=== PATIENT | female | born 1965 | race Caucasian/White ===

== ENCOUNTER 2016-09-13 17:53 | Emergency (ER) | payer MEDICAID ==
[~2016-09-13] VITALS: Ht 167.6 cm; Wt 90.5 kg
[2016-09-13 17:56] VITALS: Ht 167.6 cm; Wt 90.5 kg
[2016-09-13] MEDS ORDERED: SOD CHLORIDE 0.9% 1,000 ML IV STA (18:22)
[2016-09-13] MEDS ORDERED: ASPIRIN 81 MG TAB PO ONE (18:30)
[2016-09-13 18:46] LABS: ADD SCAN DIFF NO
[2016-09-13 18:49] LABS: BASOPHILS % 0.3 % (0.0-2.0); EOSINOPHILS # 0.1 10^3/ul (0.0-0.5); EOSINOPHILS % 1.3 % (0.0-7.0); HEMATOCRIT 46.2 % (37.0-47.0); HEMOGLOBIN 15.5 g/dl (12.0-16.0); LYMPHOCYTES # 1.2 10^3/ul (0.8-2.9); LYMPHOCYTES % 11.7 % (15.0-51.0); MEAN CORPUSCULAR HEMOGLOBIN 29.8 pg (29.0-33.0); MEAN CORPUSCULAR HGB CONC 33.5 g/dl (32.0-37.0); MEAN CORPUSCULAR VOLUME 88.7 fl (82.0-101.0); MEAN PLATELET VOLUME 9.5 fl (7.4-10.4); MONOCYTE # 0.6 10^3/ul (0.3-0.9); MONOCYTES % 5.3 % (0.0-11.0); NEUTROPHIL # 8.5 10^3/ul (1.6-7.5); PLATELET COUNT 289 10^3/UL (140-415); RED BLOOD COUNT 5.21 10^6/ul (4.20-5.40); WHITE BLOOD COUNT 10.5 10^3/ul (4.8-10.8)
--- NOTE | 2016-09-13 18:49 | RADRPT ---
PROCEDURE: XR Chest. CLINICAL INDICATION: chest pain TECHNIQUE: Single AP view of the chest were obtained COMPARISON: None FINDINGS: The heart and mediastinum are within normal limits. The pulmonary vasculature are unremarkable. The aorta is unremarkable. There is no lung consolidation, pleural effusion or pneumothorax. There i s no acute osseous abnormality. IMPRESSION: No acute disease. RPTAT: AA .Ashwin Starkey MD, Date Time Electronically viewed and signed by .Ashwin Starkey MD, MD on 09/13/2016 18:49 .J/
[2016-09-13 18:50] LABS: ADD UMIC YES; URINE BILIRUBIN (Dip) NEGATIVE (NEGATIVE); URINE BLOOD (Dip) 2+ (NEGATIVE); URINE COLOR YELLOW (YELLOW); URINE GLUCOSE (Dip) NEGATIVE (NEGATIVE); URINE KETONES (Dip) TRACE (NEGATIVE); URINE LEUKOCYTE ESTERASE (Dip) NEGATIVE (NEGATIVE); URINE NITRITE (Dip) NEGATIVE (NEGATIVE); URINE TOTAL PROTEIN (Dip) NEGATIVE (NEGATIVE); URINE UROBILINOGEN (Dip) 0.2 E.U./dL (0.1-1.0)
[2016-09-13 18:57] LABS: BACTERIA,URINE MODERATE
[2016-09-13] MEDS ORDERED: DICLOFENAC SODIUM 37.5 MG/ML VIAL IV STA (18:58)
[2016-09-13] MEDS ORDERED: SOD CHLORIDE 0.9% 1,000 ML IV ONE (19:00)
[2016-09-13 19:03] LABS: ALBUMIN 4.6 g/dl (3.3-4.9); CHLORIDE 107 mmol/L (97-110); SODIUM 141 mmol/L (135-144)
[2016-09-13 19:05] LABS: CREATININE 0.63 mg/dl (0.44-1.00)
[2016-09-13 19:06] LABS: ALANINE AMINOTRANSFERASE 50 IU/L (13-69); ALBUMIN/GLOBULIN RATIO 1.35; ALKALINE PHOSPHATASE 85 IU/L (42-121); ANION GAP 12 (8-16); ASPARTATE AMINO TRANSFERASE 28 IU/L (15-46); BILIRUBIN,INDIRECT 0.3 mg/dl (0-1.1); BILIRUBIN,TOTAL 0.3 mg/dl (0.2-1.3); BLOOD UREA NITROGEN 14 mg/dl (7-20); CARBON DIOXIDE 26 mmol/L (21-31); GLUCOSE 131 mg/dl (70-220)
[2016-09-13 19:07] LABS: CALCIUM 9.3 mg/dl (8.4-10.2)
[2016-09-13 19:18] LABS: TROPONIN-I < 0.012 ng/ml (0.00-0.12)
[2016-09-13] MEDS ORDERED: LIDOCAINE/MYLANTA 40 ML BTL PO ONE (20:30)
[2016-09-13 20:38] VITALS: BP 130/73; PULSE 91; RESP 20; TEMP 98.1
[2016-09-13] MEDS ORDERED: NAPR-688 PO (20:41)
[2016-09-13] MEDS ORDERED: CIPR500T4 PO (20:41)
[2016-09-13] MEDS ORDERED: RANI150T9 PO (20:41)
--- NOTE | 2016-09-13 20:52 | ERD ---
ER Documentation Chief Complaint Date/Time DATE: 09/13/16 TIME: 20:47 Chief Complaint Complains of fever x 2 days HPI 50-year-old female comes emergency room for 2 days of fever with generalized body aches. She also states that she has had some substernal chest pain described as a burning sensation. She denies any urinary symptoms, nuchal rigidity, cough. She also has some generalized malaise. Denies any shortness of breath. He does not have any medical problems currently. No diabetes, no hypertension, no hypercholesterolemia ROS All systems reviewed and are negative except as per history of present illness. Medications Home Meds Active Scripts Ciprofloxacin Hcl* (Ciprofloxacin Hcl*) 500 Mg Tablet, 500 MG PO BID for 3 Days , TAB Prov:SHEILA SALAMANCASHUA 09/13/16 Naproxen* (Naproxen*) 500 Mg Tablet, 500 MG PO BID Y for PAIN, #20 TAB Prov:JADYNARNULFOFERCHO MOHAN 09/13/16 Ranitidine Hcl* (Zantac*) 150 Mg Tablet, 150 MG PO BID Y for EPIGASTRIC PAIN, # 30 TAB Prov:JADYNSHEILAARNULFO 09/13/16 Reported Medications [None] No Conflict Check 10/25/12 Allergies Allergies: Coded Allergies: No Known Allergy (Unverified , 10/25/12) PMhx/Soc History of Surgery: Yes (TUBAL LIGATION; LUMPECTOMY) Hx Alcohol Use: No Hx Substance Use: No Hx Tobacco Use: No Physical Exam Vitals Vital Signs Date Time Temp Pulse Resp B/P Pulse Ox O2 Delivery O2 Flow Rate FiO2 09/13/16 20:38 98.1 91 20 130/73 100 Room Air 09/13/16 17:56 101.1 123 20 128/74 98 Physical Exam Const: [] No distress Head: Atraumatic Eyes: Normal Conjunctiva, EOMI, PRL ENT: Normal External Ears, Nose and Mouth. Neck: Full range of motion..~ No meningismus. Resp: Clear to auscultation bilaterally Cardio: Regular tachycardia, no murmurs Abd: Soft, non tender, non distended. Normal bowel sounds Skin: No petechiae or rashes Back: No midline or flank tenderness Ext: No cyanosis, or edema Neur: Awake and alert and oriented 3, no focal deficits Psych: Normal Mood and Affect Result Diagram: 09/13/16 1840 09/13/16 1840 Results 24 hrs Laboratory Tests Test 09/13/16 18:30 09/13/16 18:40 Urine Color YELLOW Urine Clarity CLEAR Urine pH 5.5 Urine Specific [place] 1.025 Urine Ketones TRACE Urine Nitrite NEGATIVE Urine Bilirubin NEGATIVE Urine Urobilinogen 0.2 E.U./dL Urine Leukocyte Esterase NEGATIVE Urine Microscopic RBC 2-5/HPF Urine Microscopic WBC 0-2/HPF Urine Epithelial Cells FEW Urine Bacteria MODERATE Urine Hemoglobin 2+ Urine Glucose NEGATIVE% Urine Total Protein NEGATIVE White Blood Count 10.510^3/ul Red Blood Count 5.2110^6/ul Hemoglobin 15.5g/dl Hematocrit 46.2% Mean Corpuscular Volume 88.7fl Mean Corpuscular Hemoglobin 29.8pg Mean Corpuscular Hemoglobin Concent 33.5g/dl Red Cell Distribution Width 13.0% Platelet Count 99075^3/UL Mean Platelet Volume 9.5fl Neutrophils % 81.0% Lymphocytes % 11.7% Monocytes % 5.3% Eosinophils % 1.3% Basophils % 0.3% Nucleated Red Blood Cells % 0.0/100WBC Neutrophils # 8.510^3/ul Lymphocytes # 1.210^3/ul Monocytes # 0.610^3/ul Eosinophils # 0.110^3/ul Basophils # 0.010^3/ul Nucleated Red Blood Cells # 0.010^3/ul Sodium Level 141mmol/L Potassium Level 4.0mmol/L Chloride Level 107mmol/L Carbon Dioxide Level 26mmol/L Anion Gap 12 Blood Urea Nitrogen 14mg/dl Creatinine 0.63mg/dl Glucose Level 131mg/dl Calcium Level 9.3mg/dl Total Bilirubin 0.3mg/dl Direct Bilirubin 0.00mg/dl Indirect Bilirubin 0.3mg/dl Aspartate Amino Transf (AST/SGOT) 28IU/L Alanine Aminotransferase (ALT/SGPT) 50IU/L Alkaline Phosphatase 85IU/L Troponin I < 0.012ng/ml Total Protein 8.0g/dl Albumin 4.6g/dl Globulin 3.40g/dl Albumin/Globulin Ratio 1.35 Current Medications Medications (Trade) Dose Ordered Sig/Inga Route PRN Reason Start Time Stop Time Status Last Admin Dose Admin Sodium Chloride (NS) 1,000 ml @ 1,000 mls/hr Q1H STAT IV 09/13/16 18:22 09/13/16 19:21 DC 09/13/16 18:43 Aspirin (Aspirin) 324 mg ONCE ONCE PO 09/13/16 18:30 09/13/16 18:31 DC 09/13/16 18:34 Diclofenac Sodium 37.5 mg 37.5 mg ONCE STAT IV 09/13/16 18:58 09/13/16 19:00 DC 09/13/16 19:03 Sodium Chloride (NS) 1,000 ml @ 1,000 mls/hr Q1H ONCE IV 09/13/16 19:00 09/13/16 19:59 DC 09/13/16 19:04 Miscellaneous Medication (Gi Cocktail (2)) 40 ml ONCE ONCE PO 09/13/16 20:30 09/13/16 20:31 DC 09/13/16 20:23 Procedures/MDM Symptoms consistent with a viral syndrome. Patient may also have acid reflux. Atypical chest pain described as a burning sensation. She was given a GI cocktail emergency room after which her chest pain resolved completely. IV diclofenac take with a agents body aches completely. She is also given 2 L of fluid. Fever resolved, tachycardia resolved, patient felt asymptomatic in the emergency room. I have very low suspicion for meningitis or serious overwhelming bacterial infection. Urinalysis was essentially negative but did have many bacteria and only a few squamous epithelial cells. We will discharge him with 3 days of ciprofloxacin for possible urinary tract infection as I would prefer this to a going untreated. I am also discharging with naproxen and Zantac. I have given her written instructions to obtain an echocardiogram from her primary care doctor. I also printed all of her laboratories for that visit. Return precautions to the ER given. EKG interpretation: Sinus tachycardia rate of 110, right axis deviation, no ST or T-wave changes concerning for acute ischemia. machine tender interpretation: Initial sinus tachycardia followed by normal sinus rhythm. No other arrhythmias Chest x-ray interpretation: See no acute process, no wide mediastinum, no infiltrate, no pneumothorax, no fractures Departure Diagnosis: Primary Impression: Chest pain Additional Impression: Viral syndrome Condition: Stable Patient Instructions: Understanding Urinary Tract Infections (UTIs), Chest Pain , Uncertain Cause, Viral Syndrome (Adult) Referrals: COMMUNITY CLINICS YOU HAVE RECEIVED A MEDICAL SCREENING EXAM AND THE RESULTS INDICATE THAT YOU DO NOT HAVE A CONDITION THAT REQUIRES URGENT TREATMENT IN THE EMERGENCY DEPARTMENT. FURTHER EVALUATION AND TREATMENT OF YOUR CONDITION CAN WAIT UNTIL YOU ARE SEEN IN YOUR DOCTORS OFFICE WITHIN THE NEXT 1-2 DAYS. IT IS YOUR RESPONSIBILITY TO MAKE AN APPOINTMENT FOR FOLOW-UP CARE. IF YOU HAVE A PRIMARY DOCTOR --you should call your primary doctor and schedule an appointment IF YOU DO NOT HAVE A PRIMARY DOCTOR YOU CAN CALL OUR PHYSICIAN REFERRAL HOTLINE AT IF YOU CAN NOT AFFORD TO SEE A PHYSICIAN YOU CAN CHOSE FROM THE FOLLOWING [facility] [address] [facility] [address] [facility] [facility] [address] [facility] [address] [facility] [address] [facility]. [facility]. [address] Additional Instructions: Llame al doctor MAANA y pastor melania DORETHA PARA DENTRO DE 2-3 NI. Consigue un referral para un echocardiogram para segurar que el avis funciona normal. D gale a la secretaria que nosotros le instruimos hacer esta doretha.Avise o llame si oneal condicin se empeora antes de la doretha. Regresa aqui si peor o no mejor. ARNULFO SALAMANCA DO September 13, 2016 20:52
== END 2016-09-13 20:49 | disposition home or self-care (01) ==
LOC: FTE 17:53
DX: R07.9 Chest pain, unspecified (principal); B34.9 Viral infection, unspecified
CPT/HCPCS: 36415; 71010; 80053; 81001; 84484; 85025; 93005; 96361; 96374; J7030; Z7502; Z7610

== ENCOUNTER 2016-09-15 11:36 | Emergency (ER) | payer MEDICAID ==
[~2016-09-15] VITALS: Ht 160 cm; Wt 88.0 kg
[~2016-09-15 11:36] MED LIST: CIPR500T4 PO; NAPR-688 PO; RANI150T9 PO
[2016-09-15 11:37] VITALS: Ht 160 cm; Wt 88.0 kg
[2016-09-15 12:57] LABS: ADD SCAN DIFF NO
[2016-09-15 13:01] LABS: BASOPHILS % 0.3 % (0.0-2.0); EOSINOPHILS # 0.3 10^3/ul (0.0-0.5); HEMATOCRIT 49.2 % (37.0-47.0); HEMOGLOBIN 15.9 g/dl (12.0-16.0); LYMPHOCYTES # 1.7 10^3/ul (0.8-2.9); LYMPHOCYTES % 25.1 % (15.0-51.0); MEAN CORPUSCULAR HEMOGLOBIN 28.8 pg (29.0-33.0); MEAN CORPUSCULAR HGB CONC 32.3 g/dl (32.0-37.0); MEAN PLATELET VOLUME 9.5 fl (7.4-10.4); MONOCYTE # 0.4 10^3/ul (0.3-0.9); MONOCYTES % 6.5 % (0.0-11.0); NEUTROPHIL # 4.2 10^3/ul (1.6-7.5); NEUTROPHILS % 63.8 % (39.0-77.0); PLATELET COUNT 245 10^3/UL (140-415); RED BLOOD COUNT 5.53 10^6/ul (4.20-5.40); RED CELL DISTRIBUTION WIDTH 13.4 % (11.5-14.5); WHITE BLOOD COUNT 6.6 10^3/ul (4.8-10.8)
[2016-09-15 13:18] LABS: ALBUMIN 4.8 g/dl (3.3-4.9)
[2016-09-15 13:21] LABS: BILIRUBIN,INDIRECT 0.1 mg/dl (0-1.1); BILIRUBIN,TOTAL 0.1 mg/dl (0.2-1.3); CREATININE 0.74 mg/dl (0.44-1.00)
[2016-09-15 13:22] LABS: ALBUMIN/GLOBULIN RATIO 1.6; TOTAL PROTEIN 7.8 g/dl (6.1-8.1)
--- NOTE | 2016-09-15 14:16 | ERD ---
ER Documentation Chief Complaint Date/Time DATE: 09/15/16 TIME: 14:15 Chief Complaint c/o bodyache and diarrhea x 2 days HPI 51 yo female comes emergency department with generalized body aches, she also reports diarrhea for the past 2 days. Patient was seen here about 2 days ago for chest pain, and fever and had a full workup and was sent home with a presumed diagnosis of urinary tract infection. This patient has been taking Cipro, and reports that she has had profuse watery diarrhea for the last few days, the last 2 episodes were bloody. She has not had any fevers or chills continuing, denies abdominal pain, or nausea vomiting. ROS All systems reviewed and are negative except as per history of present illness. Medications Home Meds Active Scripts Loperamide Hcl* (Imodium*) 2 Mg Capsule, 2 MG PO .AFTER EA LOOSE BM Y for DIARRHEA, #10 TAB Prov:LAINA CARRANZA PA-C 09/15/16 Ciprofloxacin Hcl* (Ciprofloxacin Hcl*) 500 Mg Tablet, 500 MG PO BID for 3 Days , TAB Prov:ARNULFO SALAMANCA DO 09/13/16 Naproxen* (Naproxen*) 500 Mg Tablet, 500 MG PO BID Y for PAIN, #20 TAB Prov:ARNULFO SALAMANCA DO 09/13/16 Ranitidine Hcl* (Zantac*) 150 Mg Tablet, 150 MG PO BID Y for EPIGASTRIC PAIN, # 30 TAB Prov:ARNULFO SALAMANCA DO 09/13/16 Reported Medications [None] No Conflict Check 10/25/12 Allergies Allergies: Coded Allergies: No Known Allergy (Unverified , 09/15/16) PMhx/Soc History of Surgery: Yes (TUBAL LIGATION; LUMPECTOMY) Hx Alcohol Use: No Hx Substance Use: No Hx Tobacco Use: Yes Smoking Status: Never smoker Physical Exam Vitals Vital Signs Date Time Temp Pulse Resp B/P Pulse Ox O2 Delivery O2 Flow Rate FiO2 09/15/16 11:37 97.6 88 16 124/75 99 Physical Exam General: Well-developed, well-nourished. The patient appears in no acute distress. HEENT: Head is normocephalic, atraumatic. No scleral icterus. Neck: Supple. Nontender. Lungs: Clear to auscultation. Normal air movement. Heart: Regular rate and rhythm. S1 and S2 are normal. No murmurs, gallops, or rubs. Abdomen: Soft, nontender, nondistended. Bowel sounds are normoactive. Extremities: No clubbing or cyanosis. Normal pulses. Moving extremities x 4. No weakness. Neurologic: Alert and oriented 3. No focal deficits. Skin: Normal turgor. No rash or lesions. Result Diagram: 09/15/16 1255 09/15/16 1255 Results 24 hrs Laboratory Tests Test 09/15/16 12:55 09/15/16 14:35 White Blood Count 6.610^3/ul Red Blood Count 5.5310^6/ul Hemoglobin 15.9g/dl Hematocrit 49.2% Mean Corpuscular Volume 89.0fl Mean Corpuscular Hemoglobin 28.8pg Mean Corpuscular Hemoglobin Concent 32.3g/dl Red Cell Distribution Width 13.4% Platelet Count 48459^3/UL Mean Platelet Volume 9.5fl Neutrophils % 63.8% Lymphocytes % 25.1% Monocytes % 6.5% Eosinophils % 4.0% Basophils % 0.3% Nucleated Red Blood Cells % 0.0/100WBC Neutrophils # 4.210^3/ul Lymphocytes # 1.710^3/ul Monocytes # 0.410^3/ul Eosinophils # 0.310^3/ul Basophils # 0.010^3/ul Nucleated Red Blood Cells # 0.010^3/ul Sodium Level 141mmol/L Potassium Level 4.0mmol/L Chloride Level 113mmol/L Carbon Dioxide Level 23mmol/L Anion Gap 9 Blood Urea Nitrogen 16mg/dl Creatinine 0.74mg/dl Glucose Level 97mg/dl Calcium Level 9.0mg/dl Total Bilirubin 0.1mg/dl Direct Bilirubin 0.00mg/dl Indirect Bilirubin 0.1mg/dl Aspartate Amino Transf (AST/SGOT) 37IU/L Alanine Aminotransferase (ALT/SGPT) 49IU/L Alkaline Phosphatase 88IU/L Total Protein 7.8g/dl Albumin 4.8g/dl Globulin 3.00g/dl Albumin/Globulin Ratio 1.60 Lipase 35U/L Urine Color YELLOW Urine Clarity CLEAR Urine pH 5.5 Urine Specific [place] >=1.030 Urine Ketones NEGATIVE Urine Nitrite NEGATIVE Urine Bilirubin 1+ Urine Ictotest NEGATIVE Urine Urobilinogen 0.2 E.U./dL Urine Leukocyte Esterase NEGATIVE Urine Microscopic RBC 2-5/HPF Urine Microscopic WBC 0-2/HPF Urine Squamous Epithelial Cells MODERATE Urine Bacteria RARE Urine Hemoglobin 2+ Urine Glucose NEGATIVE% Urine Total Protein TRACE Current Medications Medications (Trade) Dose Ordered Sig/Inga Route PRN Reason Start Time Stop Time Status Last Admin Dose Admin Sodium Chloride (NS) 1,000 ml @ 1,000 mls/hr Q1H ONCE IV 09/15/16 16:00 09/15/16 16:59 Loperamide HCl (Imodium Cap) 4 mg ONCE ONCE PO 09/15/16 16:00 09/15/16 16:01 Acetaminophen (Tylenol Tab) 1,000 mg ONCE STAT PO 09/15/16 15:32 09/15/16 15:33 DC Procedures/MDM ED course: Patient was given fluid bolus of normal saline 1 L, Imodium, Tylenol 1 g by mouth. MDM: 51-year-old female presents with generalized body aches, as well as diarrhea. Patient was recently seen and discharged with Cipro, she subsequently developed diarrhea, she reports that she has some blood in her diarrhea the last 2 episodes. White count was normal, there is no evidence of anemia, no electrolyte abnormalities. She does not have any history of dysuria , urgency or frequency UTI symptoms. I have advised her to discontinue the Cipro. She was given fluids as well as Imodium Tylenol and feels better at this time. She will be given Imodium for home and advised to continue Tylenol for pain. patient's reevaluation will be signed out to Tiffani Fritz PA-C and attending physician. Departure Diagnosis: Primary Impression: Diarrhea Condition: Good LAINA CARRANZA PA-C September 15, 2016 14:16
[2016-09-15] MEDS ORDERED: LOPE2CAP PO (14:45)
[2016-09-15 15:07] LABS: ADD UMIC YES; URINE BILIRUBIN (Dip) 1+ (NEGATIVE); URINE BLOOD (Dip) 2+ (NEGATIVE); URINE COLOR YELLOW (YELLOW); URINE GLUCOSE (Dip) NEGATIVE (NEGATIVE); URINE KETONES (Dip) NEGATIVE (NEGATIVE); URINE LEUKOCYTE ESTERASE (Dip) NEGATIVE (NEGATIVE); URINE NITRITE (Dip) NEGATIVE (NEGATIVE); URINE TOTAL PROTEIN (Dip) TRACE (NEGATIVE); URINE UROBILINOGEN (Dip) 0.2 E.U./dL (0.1-1.0)
[2016-09-15 15:26] LABS: ICTOTEST NEGATIVE (NEGATIVE)
[2016-09-15 15:27] LABS: BACTERIA,URINE RARE; SQUAMOUS EPITHELIAL CELL,UR MODERATE
[2016-09-15] MEDS ORDERED: ACETAMINOPHEN 500 MG TAB PO STA (15:32)
[2016-09-15] MEDS ORDERED: SOD CHLORIDE 0.9% 1,000 ML IV ONE (16:00)
[2016-09-15] MEDS ORDERED: LOPERAMIDE 2 MG CAP PO ONE (16:00)
== END 2016-09-15 18:07 | disposition home or self-care (01) ==
LOC: FTE 11:36
DX: R19.7 Diarrhea, unspecified (principal)
CPT/HCPCS: 36415; 80053; 81001; 83690; 85025; J7030; Z7502; Z7610

== ENCOUNTER 2016-09-19 14:04 | Emergency (ER) | payer MEDICAID ==
[~2016-09-19] VITALS: Wt 84.1 kg
[~2016-09-19 14:04] MED LIST changes: +LOPE2CAP PO
[2016-09-19] MEDS ORDERED: ONDANSETRON 4 MG INJ IV STA (14:15)
[2016-09-19] MEDS ORDERED: SOD CHLORIDE 0.9% 1,000 ML IV STA (14:15)
[2016-09-19] MEDS ORDERED: morphine 4 MG/ML VIAL IV STA (14:15)
[2016-09-19 14:58] LABS: ADD SCAN DIFF NO
[2016-09-19 15:00] LABS: BASOPHILS % 0.4 % (0.0-2.0); EOSINOPHILS % 0.3 % (0.0-7.0); HEMATOCRIT 40.1 % (37.0-47.0); HEMOGLOBIN 13.6 g/dl (12.0-16.0); LYMPHOCYTES % 21.8 % (15.0-51.0); MEAN CORPUSCULAR HEMOGLOBIN 29.6 pg (29.0-33.0); MEAN CORPUSCULAR HGB CONC 33.9 g/dl (32.0-37.0); MEAN CORPUSCULAR VOLUME 87.2 fl (82.0-101.0); MEAN PLATELET VOLUME 9.7 fl (7.4-10.4); MONOCYTE # 0.2 10^3/ul (0.3-0.9); MONOCYTES % 1.9 % (0.0-11.0); NEUTROPHIL # 6.8 10^3/ul (1.6-7.5); NEUTROPHILS % 75.4 % (39.0-77.0); PLATELET COUNT 299 10^3/UL (140-415); RED CELL DISTRIBUTION WIDTH 13.1 % (11.5-14.5)
[2016-09-19 15:13] LABS: ADD UMIC YES; URINE BILIRUBIN (Dip) 1+ (NEGATIVE); URINE BLOOD (Dip) 1+ (NEGATIVE); URINE COLOR YELLOW (YELLOW); URINE GLUCOSE (Dip) NEGATIVE (NEGATIVE); URINE KETONES (Dip) TRACE (NEGATIVE); URINE LEUKOCYTE ESTERASE (Dip) NEGATIVE (NEGATIVE); URINE NITRITE (Dip) NEGATIVE (NEGATIVE); URINE TOTAL PROTEIN (Dip) TRACE (NEGATIVE); URINE UROBILINOGEN (Dip) 0.2 E.U./dL (0.1-1.0)
[2016-09-19 15:21] LABS: ALBUMIN 4.5 g/dl (3.3-4.9); ALBUMIN/GLOBULIN RATIO 1.8; BILIRUBIN,INDIRECT 0.1 mg/dl (0-1.1); BILIRUBIN,TOTAL 0.1 mg/dl (0.2-1.3); CREATININE 0.61 mg/dl (0.44-1.00); POTASSIUM 3.5 mmol/L (3.5-5.1)
[2016-09-19] MEDS ORDERED: SOD CHLORIDE 0.9% 1,000 ML IV ONE (15:30)
[2016-09-19 15:33] LABS: BACTERIA,URINE MANY; ICTOTEST NEGATIVE (NEGATIVE); SQUAMOUS EPITHELIAL CELL,UR MANY
[2016-09-19] MEDS ORDERED: LIDOCAINE/MYLANTA 40 ML BTL PO ONE (16:00)
[2016-09-19] MEDS ORDERED: ONDA4TAB11 PO (16:34)
[2016-09-19] MEDS ORDERED: RANI150T9 PO (16:34)
[2016-09-19] MEDS ORDERED: METO10TA92 PO (16:34)
--- NOTE | 2016-09-19 16:39 | ERD ---
ER Documentation Chief Complaint Date/Time DATE: 09/19/16 TIME: 16:37 Chief Complaint pt. lethargic in triage. cc n/v/d HPI This 51-year-old female complains of nausea vomiting and diarrhea for the last couple of days. She starting to feel dehydrated. She has generalized abdominal pain that is mild. Her vomit which was last this morning without bleeding. Her diarrhea was watery. She denies fevers but does feel slightly weak. ROS All systems reviewed and are negative except as per history of present illness. Medications Home Meds Active Scripts Metoclopramide* (Reglan*) 10 Mg Tablet, 10 MG PO Q6 Y for NAUSEA AND/OR VOMITING , #10 TAB Prov:JADYNARNULFO DO 09/19/16 Ranitidine Hcl* (Zantac*) 150 Mg Tablet, 150 MG PO BID Y for EPIGASTRIC PAIN, # 30 TAB Prov:JADYNARNULFOFERCHO MOHAN 09/19/16 Ondansetron (Zofran Odt) 4 Mg Tab.rapdis, 4 MG PO Q6, #10 Prov:JADYNARNULFOFERCHO MOHAN 09/19/16 Loperamide Hcl* (Imodium*) 2 Mg Capsule, 2 MG PO .AFTER EA LOOSE BM Y for DIARRHEA, #10 TAB Prov:LIANA CARRANZA PA-C 09/15/16 Ciprofloxacin Hcl* (Ciprofloxacin Hcl*) 500 Mg Tablet, 500 MG PO BID for 3 Days , TAB Prov:JADYNARNULFO 09/13/16 Naproxen* (Naproxen*) 500 Mg Tablet, 500 MG PO BID Y for PAIN, #20 TAB Prov:JADYNARNULFOFERCHO MOHAN 09/13/16 Ranitidine Hcl* (Zantac*) 150 Mg Tablet, 150 MG PO BID Y for EPIGASTRIC PAIN, # 30 TAB Prov:JADYNARNULFO 09/13/16 Reported Medications [None] No Conflict Check 10/25/12 Allergies Allergies: Coded Allergies: No Known Allergy (Unverified , 09/15/16) PMhx/Soc History of Surgery: Yes (TUBAL LIGATION; LUMPECTOMY) Anesthesia Reaction: No Hx Neurological Disorder: No Hx Respiratory Disorders: No Hx Cardiac Disorders: No Hx Psychiatric Problems: No Hx Miscellaneous Medical Probl: Yes (HYPOGLYCEMIA) Hx Alcohol Use: No Hx Substance Use: No Hx Tobacco Use: Yes Smoking Status: Current every day smoker Physical Exam Vitals Vital Signs Date Time Temp Pulse Resp B/P Pulse Ox O2 Delivery O2 Flow Rate FiO2 09/19/16 14:06 98.7 90 20 144/68 99 Physical Exam Const: [] Head: Atraumatic Eyes: Normal Conjunctiva ENT: Normal External Ears, Nose and Mouth. Neck: Full range of motion..~ No meningismus. Resp: Clear to auscultation bilaterally Cardio: Regular rate and rhythm, no murmurs Abd: Soft, non tender, non distended. Normal bowel sounds Skin: No petechiae or rashes Back: No midline or flank tenderness Ext: No cyanosis, or edema Neur: Awake and alert Psych: Normal Mood and Affect Result Diagram: 09/19/16 1437 09/19/16 1437 Results 24 hrs Laboratory Tests Test 09/19/16 14:10 09/19/16 14:37 Bedside Glucose 124mg/dL White Blood Count 9.010^3/ul Red Blood Count 4.6010^6/ul Hemoglobin 13.6g/dl Hematocrit 40.1% Mean Corpuscular Volume 87.2fl Mean Corpuscular Hemoglobin 29.6pg Mean Corpuscular Hemoglobin Concent 33.9g/dl Red Cell Distribution Width 13.1% Platelet Count 12598^3/UL Mean Platelet Volume 9.7fl Neutrophils % 75.4% Lymphocytes % 21.8% Monocytes % 1.9% Eosinophils % 0.3% Basophils % 0.4% Nucleated Red Blood Cells % 0.0/100WBC Neutrophils # 6.810^3/ul Lymphocytes # 2.010^3/ul Monocytes # 0.210^3/ul Eosinophils # 0.010^3/ul Basophils # 0.010^3/ul Nucleated Red Blood Cells # 0.010^3/ul Urine Color YELLOW Urine Clarity TURBID Urine pH 5.5 Urine Specific [place] >=1.030 Urine Ketones TRACE Urine Nitrite NEGATIVE Urine Bilirubin 1+ Urine Ictotest NEGATIVE Urine Urobilinogen 0.2 E.U./dL Urine Leukocyte Esterase NEGATIVE Urine Microscopic RBC 2-5/HPF Urine Microscopic WBC NONE SEEN/HPF Urine Squamous Epithelial Cells MANY Urine Amorphous Urates MANY Urine Bacteria MANY Urine Hemoglobin 1+ Urine Glucose NEGATIVE% Urine Total Protein TRACE Sodium Level 146mmol/L Potassium Level 3.5mmol/L Chloride Level 109mmol/L Carbon Dioxide Level 27mmol/L Anion Gap 14 Blood Urea Nitrogen 16mg/dl Creatinine 0.61mg/dl Glucose Level 137mg/dl Calcium Level 9.0mg/dl Total Bilirubin 0.1mg/dl Direct Bilirubin 0.00mg/dl Indirect Bilirubin 0.1mg/dl Aspartate Amino Transf (AST/SGOT) 32IU/L Alanine Aminotransferase (ALT/SGPT) 58IU/L Alkaline Phosphatase 80IU/L Total Protein 7.0g/dl Albumin 4.5g/dl Globulin 2.50g/dl Albumin/Globulin Ratio 1.80 Lipase 33U/L Current Medications Medications (Trade) Dose Ordered Sig/Inga Route PRN Reason Start Time Stop Time Status Last Admin Dose Admin Sodium Chloride (NS) 1,000 ml @ 1,000 mls/hr Q1H STAT IV 09/19/16 14:15 09/19/16 15:14 DC 09/19/16 14:39 Morphine Sulfate (morphine) 4 mg ONCE STAT IV 09/19/16 14:15 09/19/16 14:20 DC Ondansetron HCl 4 mg 4 mg ONCE STAT IV 09/19/16 14:15 09/19/16 14:20 DC 09/19/16 14:39 Sodium Chloride (NS) 1,000 ml @ 1,000 mls/hr Q1H ONCE IV 09/19/16 15:30 09/19/16 16:29 DC 09/19/16 15:58 Miscellaneous Medication (Gi Cocktail (2)) 40 ml ONCE ONCE PO 09/19/16 16:00 09/19/16 16:01 DC 09/19/16 15:58 Procedures/MDM Likely viral gastroenteritis patient was hydrated with 2 L of normal saline given Zofran, morphine, GI cocktail and feels much better. She had a benign physical exam and abdominal exam and laboratories are within normal limits. I am going to discharge her with primary care follow-up as well as Zofran, Reglan , Zantac. Return precautions to the ER given. Urinalysis negative for infection is a dirty catch specimen with no leukocyte esterase or white blood cells. Departure Diagnosis: Primary Impression: Gastroenteritis Condition: Stable Patient Instructions: Gastroenteritis, Viral (6Y-Adult) Referrals: COMMUNITY CLINICS YOU HAVE RECEIVED A MEDICAL SCREENING EXAM AND THE RESULTS INDICATE THAT YOU DO NOT HAVE A CONDITION THAT REQUIRES URGENT TREATMENT IN THE EMERGENCY DEPARTMENT. FURTHER EVALUATION AND TREATMENT OF YOUR CONDITION CAN WAIT UNTIL YOU ARE SEEN IN YOUR DOCTORS OFFICE WITHIN THE NEXT 1-2 DAYS. IT IS YOUR RESPONSIBILITY TO MAKE AN APPOINTMENT FOR FOLOW-UP CARE. IF YOU HAVE A PRIMARY DOCTOR --you should call your primary doctor and schedule an appointment IF YOU DO NOT HAVE A PRIMARY DOCTOR YOU CAN CALL OUR PHYSICIAN REFERRAL HOTLINE AT IF YOU CAN NOT AFFORD TO SEE A PHYSICIAN YOU CAN CHOSE FROM THE FOLLOWING [facility] [address] [facility]. [facility] [address] [facility] [address] [facility] [address] [facility] [facility] [address] [facility]. [facility]. [address] Additional Instructions: Call your primary care doctor TOMORROW for an appointment during the next 2-3 days.See the doctor sooner or return here if your condition worsens before your appointment time. ARNULFO SALAMANCA DO Sep 19, 2016 16:39
[2016-09-19 16:59] VITALS: BP 135/94; PULSE 74; RESP 16; TEMP 98.6
== END 2016-09-19 17:08 | disposition home or self-care (01) ==
LOC: E/R 14:04
DX: K52.9 Noninfective gastroenteritis and colitis, unspecified (principal); F17.210 Nicotine dependence, cigarettes, uncomplicated
CPT/HCPCS: 36415; 80053; 81001; 82962; 83690; 85025; 96374; J2405; J7030; Z7502; Z7610; J2270

== ENCOUNTER 2016-11-11 15:54 | Emergency (ER) | payer MEDICAID ==
[~2016-11-11] VITALS: Ht 162.6 cm; Wt 84.5 kg
[~2016-11-11 15:54] MED LIST changes: +METO10TA92 PO; +ONDA4TAB11 PO
[2016-11-11 16:04] VITALS: Ht 162.6 cm; Wt 84.5 kg
--- NOTE | 2016-11-11 17:06 | ERD ---
ER Documentation Chief Complaint Date/Time DATE: 11/11/16 TIME: 17:00 Chief Complaint RT HAND PAIN /SWELLING S/P TRIP AND FALL TODAY HPI 51 year old female presents to the emergency department complaining of right digit and wrist pain status post ground level fall that occurred 1 hour prior to being seen. Patient complains of 6/10 pain, swelling, restricted range of motion. She has not tried medications. ROS All systems reviewed and are negative except as per history of present illness. Medications Home Meds Active Scripts Ibuprofen* (Motrin*) 600 Mg Tab, 600 MG PO Q6H Y for PAIN AND OR ELEVATED TEMP, #30 TAB Prov:CHUN CARDONA PA-C 11/11/16 Metoclopramide* (Reglan*) 10 Mg Tablet, 10 MG PO Q6 Y for NAUSEA AND/OR VOMITING , #10 TAB Prov:ARNULFO SALAMANCA DO 09/19/16 Ranitidine Hcl* (Zantac*) 150 Mg Tablet, 150 MG PO BID Y for EPIGASTRIC PAIN, # 30 TAB Prov:ARNULFO SALAMANCA DO 09/19/16 Ondansetron (Zofran Odt) 4 Mg Tab.rapdis, 4 MG PO Q6, #10 Prov:ARNULFO SALAMANCA DO 09/19/16 Loperamide Hcl* (Imodium*) 2 Mg Capsule, 2 MG PO .AFTER EA LOOSE BM Y for DIARRHEA, #10 TAB Prov:LAINA CARRANZA PA-C 09/15/16 Ciprofloxacin Hcl* (Ciprofloxacin Hcl*) 500 Mg Tablet, 500 MG PO BID for 3 Days , TAB Prov:ARNULFO SALAMANCA DO 09/13/16 Naproxen* (Naproxen*) 500 Mg Tablet, 500 MG PO BID Y for PAIN, #20 TAB Prov:ARNULFO SALAMANCA DO 09/13/16 Ranitidine Hcl* (Zantac*) 150 Mg Tablet, 150 MG PO BID Y for EPIGASTRIC PAIN, # 30 TAB Prov:ARNULFO SALAMANCA DO 09/13/16 Reported Medications [None] No Conflict Check 10/25/12 Allergies Allergies: Coded Allergies: No Known Allergy (Unverified , 09/15/16) PMhx/Soc History of Surgery: Yes (TUBAL LIGATION; LUMPECTOMY) Anesthesia Reaction: No Hx Neurological Disorder: No Hx Respiratory Disorders: No Hx Cardiac Disorders: No Hx Psychiatric Problems: No Hx Miscellaneous Medical Probl: Yes (HYPOGLYCEMIA) Hx Alcohol Use: No Hx Substance Use: No Hx Tobacco Use: Yes Physical Exam Vitals Vital Signs Date Time Temp Pulse Resp B/P Pulse Ox O2 Delivery O2 Flow Rate FiO2 11/11/16 16:04 98.1 86 18 137/77 99 Physical Exam General: WD/WN, in no apparent distress, non-toxic appearing HENT: NC/AT Eyes: Conjunctiva normal Neck: Supple Pulm: Clear to auscultation, normal labored breathing; no wheezing/rales/ rhonchi heard CV: Good capillary refill GI: Non-distended, no guarding Back: No masses Ext: TTP on right 3,4 digits, dorsal hand, and wrist, restricted ROM Neuro: Moves on all fours Skin: intact Psych: Normal mood Results 24 hrs Current Medications Medications (Trade) Dose Ordered Sig/Inga Route PRN Reason Start Time Stop Time Status Last Admin Dose Admin Acetaminophen/ Hydrocodone Bitart ([place] (5/325)) 1 tab ONCE ONCE PO 11/11/16 19:00 11/11/16 19:01 DC 11/11/16 19:07 Procedures/MDM This is a 51-year-old female presenting to the emergency department complaining of right wrist and hand pain status post fall on outstretched hand and was found to have a - Small linear oblique avulsion fracture fragment off the proximal volar aspect of the fourth middle phalanx. Hand and wrist x-rays were done. Wrist x-ray was unremarkable. Hand x-ray showed a small linear oblique avulsion fracture of the fourth middle phalanx, there was no evidence of dislocation. Patient was placed in a metal finger splint,. She was neurovascular intact pre-and post treatment. Patient was instructed to follow-up with an orthopedist for further evaluation management. Prescription for ibuprofen was provided. She understands and agrees to this plan Departure Diagnosis: Primary Impression: Fracture phalanges, hand Condition: Stable CHUN CARDONA PA-C Nov 11, 2016 17:06
--- NOTE | 2016-11-11 18:13 | RADRPT ---
PROCEDURE: Right hand x-ray CLINICAL INDICATION: FALL TECHNIQUE: AP, lateral and oblique views were obtained. COMPARISON: None FINDINGS: There is an oblique small avulsion fracture fragment off the proximal volar aspect of the fourth mid dle phalanx, minimally distracted. No other fracture or evidence of dislocation is seen. No foreig n body is seen. IMPRESSION: Small linear oblique avulsion fracture fragment off the proximal volar aspect of the fourth middle p halanx. RPTAT: [facility]BE Kaley Zambrano Physician Date Time Electronically viewed and signed by Kaley Zambrano Physician on 11/11/2016 18:12 LE/
--- NOTE | 2016-11-11 18:13 | RADRPT ---
PROCEDURE: XR Wrist. CLINICAL INDICATION: Pain. TECHNIQUE: 4 views of the right wrist. COMPARISON: None available. FINDINGS: No fracture or dislocation is identified. The joint spaces are preserved. There is no significant soft tissue swelling. IMPRESSION: 1. No fracture or dislocation of the right wrist. RPTAT: HTAR .Job Machado MD, Date Time Electronically viewed and signed by .Job Machado MD, on 11/11/2016 18:13 .R/
[2016-11-11] MEDS ORDERED: IBUP-1542 PO (18:22)
[2016-11-11] MEDS ORDERED: HYDROCODONE/APAP (5/325) TAB PO ONE (19:00)
== END 2016-11-11 19:36 | disposition home or self-care (01) ==
LOC: FTE 15:54
DX: S62.622A Displaced fracture of middle phalanx of right middle finger, initial encounter for closed fracture (principal); W18.39XA Other fall on same level, initial encounter; Y92.9 Unspecified place or not applicable; Z87.891 Personal history of nicotine dependence
CPT/HCPCS: 29125; 73110; 73130; Z7502; Z7610

== ENCOUNTER 2017-07-24 08:43 | Emergency (ER) | END 2017-07-24 13:29 | disposition home or self-care (01) ==

== ENCOUNTER 2018-02-23 12:49 | Emergency (ER) | END 2018-02-23 15:20 | disposition home or self-care (01) ==

== ENCOUNTER 2018-08-04 09:12 | Emergency (ER) | payer MEDICAID ==
[~2018-08-04] VITALS: Wt 81.0 kg
[~2018-08-04 09:12] MED LIST changes: +CYCL10TA7 PO; +IBUP-1542 PO; +NAPR-985 PO; +RANI150T35 PO; -RANI150T9 PO; +TRAM50TA PO; +TRAM50TA2 PO
[2018-08-04 09:14] VITALS: BP 134/66; PULSE 78; RESP 18
[2018-08-04] MEDS ORDERED: DIPHTH/TET/ACEL PERTUSS (ADULT) 0.5 ML VIAL IM* ONE (10:00)
[2018-08-04] MEDS ORDERED: LIDOCAINE 1% (MDV) 20 ML INJ SC ONE (10:00)
[2018-08-04] MEDS ORDERED: ACET500C5 PO (10:12)
--- NOTE | 2018-08-04 10:23 | ERD ---
ER Documentation Chief Complaint Chief Complaint L HAND LAC FROM KNIFE HPI Patient is a 52-year-old female with no past medical history visits ER for concerns of a laceration to her left hand. Laceration is over the thenar aspect. Laceration occurred prior to arrival. Patient states she was using a knife to remove pain off the wall when the knife slipped and caught her. Patient denies any broken glass or wood foreign bodies. Patient denies any numbness or tingling. Patient is right-hand dominant. Patient does not recall her last tetanus shot. ROS All systems reviewed and are negative except as per history of present illness. Medications Home Meds Active Scripts Acetaminophen* (Tylophen*) 500 Mg Capsule, 1 CAP PO Q6H PRN for PAIN AND OR ELEVATED TEMP, #20 CAP Prov:RICH RODRIGUEZ PA-C 08/04/18 Cyclobenzaprine Hcl* (Cyclobenzaprine Hcl*) 10 Mg Tablet, 10 MG PO TID, #15 TAB Prov:ADELSO DENISE MD 02/23/18 Ibuprofen* (Motrin*) 600 Mg Tab, 600 MG PO Q6, #30 TAB Prov:ADELSO DENISE MD 02/23/18 Tramadol Hcl* (Ultram*) 50 Mg Tablet, 50 MG PO Q6H PRN for PAIN, #20 TAB Prov:ADELSO DENISE MD 02/23/18 Cyclobenzaprine Hcl* (Cyclobenzaprine Hcl*) 10 Mg Tablet, 10 MG PO QHS, #7 TAB Prov:GERA WOLFE PA-C 07/24/17 Naproxen* (Naprosyn*) 500 Mg Tablet, 500 MG PO BID PRN for PAIN AND/OR INFLAMMATION, #30 TAB Prov:GERA WOLFE PA-C 07/24/17 Tramadol HCl (Tramadol HCl) 50 Mg Tablet, 50 MG PO Q4 PRN for PAIN, #20 TAB Prov:GERA WOLFE PA-C 07/24/17 Ibuprofen* (Motrin*) 600 Mg Tab, 600 MG PO Q6H PRN for PAIN AND OR ELEVATED TEMP, #30 TAB Prov:CHUN CARDONA PA-C 11/11/16 Metoclopramide* (Reglan*) 10 Mg Tablet, 10 MG PO Q6 PRN for NAUSEA AND/OR VOMITING, #10 TAB Prov:ARNULFO SALAMANCA DO 09/19/16 Ranitidine Hcl* (Zantac*) 150 Mg Tablet, 150 MG PO BID PRN for EPIGASTRIC PAIN, #30 TAB Prov:ARNULFO SALAMANCA DO 09/19/16 Ondansetron (Zofran Odt) 4 Mg Tab.rapdis, 4 MG PO Q6, #10 Prov:ARNULFO SALAMANCA DO 09/19/16 Loperamide Hcl* (Imodium*) 2 Mg Capsule, 2 MG PO .AFTER EA LOOSE BM PRN for DIARRHEA, #10 TAB Prov:LAINA CARRANZA PA-C 09/15/16 Ciprofloxacin Hcl* (Ciprofloxacin Hcl*) 500 Mg Tablet, 500 MG PO BID for 3 Days, TAB Prov:ARNULFO SALAMANCA DO 09/13/16 Naproxen* (Naproxen*) 500 Mg Tablet, 500 MG PO BID PRN for PAIN, #20 TAB Prov:ARNULFO SALAMANCA DO 09/13/16 Ranitidine Hcl* (Zantac*) 150 Mg Tablet, 150 MG PO BID PRN for EPIGASTRIC PAIN, #30 TAB Prov:ARNULFO SALAMANCA DO 09/13/16 Reported Medications [None] No Conflict Check 10/25/12 Allergies Allergies: Coded Allergies: No Known Allergy (Unverified , 02/23/18) PMhx/Soc History of Surgery: Yes (TUBAL LIGATION; LUMPECTOMY) Anesthesia Reaction: No Hx Neurological Disorder: No Hx Respiratory Disorders: No Hx Cardiac Disorders: No Hx Psychiatric Problems: No Hx Miscellaneous Medical Probl: Yes (HYPOGLYCEMIA) Hx Alcohol Use: No Hx Substance Use: No Hx Tobacco Use: Yes (3 cigs/ day) Smoking Status: Never smoker FmHx Family History: No diabetes Physical Exam Vitals Vital Signs Date Temp Pulse Resp B/P (MAP) Pulse Ox O2 O2 Flow FiO2 Time Delivery Rate 08/04/18 98.0 78 18 134/66 99 09:14 (88) Physical Exam GENERAL: Well-developed, well-nourished female. Appears in no acute distress. HEAD: Normocephalic, atraumatic. EYES: Pupils are equally reactive bilaterally. EOMs grossly intact. No conjunctival erythema. ENT: Moist mucous membranes. No uvula deviation. No kissing tonsils. NECK: Supple. No meningismus. Normal range of motion of the neck. LUNG: Clear to auscultation bilaterally. No rhonchi, wheezing, rales or coarse breath sounds. HEART: Regular rate and rhythm. No murmurs, rubs or gallops. EXTREMITIES: Equal pulses bilaterally. No peripheral clubbing, cyanosis or edema. No unilateral leg swelling. L HAND: Normal range of motion of all digits. Able to give thumbs up, cross digits 2 and 3, performed the thumb opposition. 2+ pulses. Neurovascular intact. Normal cap refill. NEUROLOGIC: Alert and oriented. Moving all four extremities without any difficulty. Normal speech. Steady gait. SKIN: 2 cm laceration noted to the thenar aspect of the left palm. Minimal active bleeding. Results 24 hrs Current Medications Medications Dose Sig/Inga Start Time Status Last (Trade) Ordered Route PRN Stop Time Admin Dose Reason Admin Diphtheria/ 0.5 ml ONCE ONCE 08/04/18 DC 08/04/18 Tetanus/Acell IM* 10:00 09:38 Pertussis 08/04/18 10:01 (Adacel) Lidocaine 20 ml ONCE ONCE 08/04/18 DC (Xylocaine SC 10:00 1% (Mdv) 20 08/04/18 10:01 ml) Procedures/MDM Laceration Repair by me: Anesthesia: 1% lidocaine locally no epinephrine Location: Left thenar region Tendon/Joint/Nerves: No injury Foreign body: None detected after copious irrigation and exploration Technique: 2 Ethilon 5-0 simple Interrupted Sutures Complexity: No subcutaneous sutures/mucosal repair/edge excision Post Closure Length: 2 cm Patient's bleeding was easily controlled in the department and there is no indication of anemia. No evidence of compartment syndrome, neurologic injury, vascular injury, open joint, tendon laceration, or foreign body. Patient is appropriate for outpatient follow up. 48 hour wound check. Scar minimization instructions given. Departure Diagnosis: Primary Impression: Laceration Condition: Fair Patient Instructions: Laceration, Hand Additional Instructions: Wound recheck advised in 2 days. Suture removal advised in 7-10 days. RICH RODRIGUEZ PA-C Aug 04, 2018 10:23
== END 2018-08-04 10:43 | disposition home or self-care (01) ==
LOC: FTE 09:12
DX: S61.412A Laceration without foreign body of left hand, initial encounter (principal); W26.0XXA Contact with knife, initial encounter; Y92.9 Unspecified place or not applicable; Z23 Encounter for immunization; Z87.891 Personal history of nicotine dependence
CPT/HCPCS: 12001; 90471; 90715; Z7502; Z7610

== ENCOUNTER 2018-08-06 09:08 | Emergency (ER) | payer MEDICAID ==
[~2018-08-06] VITALS: Wt 89.0 kg
[~2018-08-06 09:08] MED LIST changes: +ACET500C5 PO
[2018-08-06 09:13] VITALS: BP 123/76; PULSE 76; RESP 18
--- NOTE | 2018-08-06 10:20 | ERD ---
ER Documentation Chief Complaint Chief Complaint left hand wound check HPI 52-year-old female presents for wound check a laceration sustained on her left hand 2 days ago. She has no complaints of restricted range of motion weakness or redness or bleeding or discharge. She is here for a wound check. No new complaints. ROS All systems reviewed and are negative except as per history of present illness. Medications Home Meds Active Scripts Acetaminophen* (Tylophen*) 500 Mg Capsule, 1 CAP PO Q6H PRN for PAIN AND OR ELEVATED TEMP, #20 CAP Prov:RICH RODRIGUEZ PA-C 08/04/18 Cyclobenzaprine Hcl* (Cyclobenzaprine Hcl*) 10 Mg Tablet, 10 MG PO TID, #15 TAB Prov:ADELSO DENISE MD 02/23/18 Ibuprofen* (Motrin*) 600 Mg Tab, 600 MG PO Q6, #30 TAB Prov:ADELSO DENISE MD 02/23/18 Tramadol Hcl* (Ultram*) 50 Mg Tablet, 50 MG PO Q6H PRN for PAIN, #20 TAB Prov:ADELSO DENISE MD 02/23/18 Cyclobenzaprine Hcl* (Cyclobenzaprine Hcl*) 10 Mg Tablet, 10 MG PO QHS, #7 TAB Prov:GERA WOLFE PA-C 07/24/17 Naproxen* (Naprosyn*) 500 Mg Tablet, 500 MG PO BID PRN for PAIN AND/OR INFLAMMATION, #30 TAB Prov:GERA WOLFE PA-C 07/24/17 Tramadol HCl (Tramadol HCl) 50 Mg Tablet, 50 MG PO Q4 PRN for PAIN, #20 TAB Prov:GERA WOLFE PA-C 07/24/17 Ibuprofen* (Motrin*) 600 Mg Tab, 600 MG PO Q6H PRN for PAIN AND OR ELEVATED TEMP, #30 TAB Prov:CHUN CARDONA PA-C 11/11/16 Metoclopramide* (Reglan*) 10 Mg Tablet, 10 MG PO Q6 PRN for NAUSEA AND/OR VOMITING, #10 TAB Prov:ARNULFO SALAMANCA DO 09/19/16 Ranitidine Hcl* (Zantac*) 150 Mg Tablet, 150 MG PO BID PRN for EPIGASTRIC PAIN, #30 TAB Prov:ARNULFO SALAMANCA DO 09/19/16 Ondansetron (Zofran Odt) 4 Mg Tab.rapdis, 4 MG PO Q6, #10 Prov:ARNULFO SALAMANCA DO 09/19/16 Loperamide Hcl* (Imodium*) 2 Mg Capsule, 2 MG PO .AFTER EA LOOSE BM PRN for DIARRHEA, #10 TAB Prov:LAINA CARRANZA PA-C 09/15/16 Ciprofloxacin Hcl* (Ciprofloxacin Hcl*) 500 Mg Tablet, 500 MG PO BID for 3 Days, TAB Prov:ARNULFO SALAMANCA DO 09/13/16 Naproxen* (Naproxen*) 500 Mg Tablet, 500 MG PO BID PRN for PAIN, #20 TAB Prov:ARNULFO SALAMANCA DO 09/13/16 Ranitidine Hcl* (Zantac*) 150 Mg Tablet, 150 MG PO BID PRN for EPIGASTRIC PAIN, #30 TAB Prov:ARNULFO SALAMANCA DO 09/13/16 Reported Medications [None] No Conflict Check 10/25/12 Allergies Allergies: Coded Allergies: No Known Allergy (Unverified , 08/06/18) PMhx/Soc History of Surgery: Yes (TUBAL LIGATION; LUMPECTOMY) Anesthesia Reaction: No Hx Neurological Disorder: No Hx Respiratory Disorders: No Hx Cardiac Disorders: No Hx Psychiatric Problems: No Hx Miscellaneous Medical Probl: Yes (HYPOGLYCEMIA) Hx Alcohol Use: No Hx Substance Use: No Hx Tobacco Use: Yes (3 cigs/ day) Smoking Status: Former smoker FmHx Family History: No diabetes, No coronary disease, No other Physical Exam Vitals Vital Signs Date Temp Pulse Resp B/P (MAP) Pulse Ox O2 O2 Flow FiO2 Time Delivery Rate 08/06/18 98.1 76 18 123/76 99 09:13 (92) Physical Exam Const: No acute distress Head: Atraumatic Eyes: Normal Conjunctiva ENT: Normal External Ears, Nose and Mouth. Neck: Full range of motion. No meningismus. Resp: Clear to auscultation bilaterally Cardio: Regular rate and rhythm, no murmurs Abd: Soft, non tender, non distended. Normal bowel sounds Skin: No petechiae or rashes Back: No midline or flank tenderness Ext: No cyanosis, or edema. Healing with small laceration on the left thenar eminence. No erythema, bleeding or discharge restricted range of motion weakness or deficits. Neur: Awake and alert Psych: Normal Mood and Affect Procedures/MDM Patient presents with what appears to be a satisfactorily healing wound on the left hand. Wound was redressed. She will discharged home with recommendations for 5 days suture removal. She should return sooner for fevers, redness, new or worsening symptoms. Departure Diagnosis: Primary Impression: Encounter for wound re-check Condition: Stable Patient Instructions: Wound Check, Lac F/U (No Infection) Referrals: [facility] (PCP) Additional Instructions: don baker 5 farrell para sacjennifer puntoyariel. ADELSO DENISE MD Aug 06, 2018 10:20
== END 2018-08-06 10:41 | disposition home or self-care (01) ==
LOC: FTE 09:08
DX: Z48.01 Encounter for change or removal of surgical wound dressing (principal); Z87.891 Personal history of nicotine dependence
CPT/HCPCS: 99281

== ENCOUNTER 2018-08-11 10:32 | Emergency (ER) | payer MEDICAID ==
[~2018-08-11] VITALS: Wt 90.6 kg
[2018-08-11 10:34] VITALS: BP 125/81; PULSE 87; RESP 18
--- NOTE | 2018-08-11 11:11 | ERD ---
ER Documentation Chief Complaint Chief Complaint suture removal to left hand . 7 days post HPI 52-year-old female presents with suture removal request on left hand. Sustained a laceration 7 days ago. She has no redness, restricted range of motion, weakness, additional complaints. ROS All systems reviewed and are negative except as per history of present illness. Medications Home Meds Active Scripts Acetaminophen* (Tylophen*) 500 Mg Capsule, 1 CAP PO Q6H PRN for PAIN AND OR ELEVATED TEMP, #20 CAP Prov:RICH RODRIGUEZ PA-C 08/04/18 Cyclobenzaprine Hcl* (Cyclobenzaprine Hcl*) 10 Mg Tablet, 10 MG PO TID, #15 TAB Prov:ADELSO DENISE MD 02/23/18 Ibuprofen* (Motrin*) 600 Mg Tab, 600 MG PO Q6, #30 TAB Prov:ADELSO DENISE MD 02/23/18 Tramadol Hcl* (Ultram*) 50 Mg Tablet, 50 MG PO Q6H PRN for PAIN, #20 TAB Prov:ADELSO DENISE MD 02/23/18 Cyclobenzaprine Hcl* (Cyclobenzaprine Hcl*) 10 Mg Tablet, 10 MG PO QHS, #7 TAB Prov:GERA WOLFE PA-C 07/24/17 Naproxen* (Naprosyn*) 500 Mg Tablet, 500 MG PO BID PRN for PAIN AND/OR INFLAMMATION, #30 TAB Prov:GERA WOLFE PA-C 07/24/17 Tramadol HCl (Tramadol HCl) 50 Mg Tablet, 50 MG PO Q4 PRN for PAIN, #20 TAB Prov:GERA WOLFE PA-C 07/24/17 Ibuprofen* (Motrin*) 600 Mg Tab, 600 MG PO Q6H PRN for PAIN AND OR ELEVATED TEMP, #30 TAB Prov:CHUN CARDONA PA-C 11/11/16 Metoclopramide* (Reglan*) 10 Mg Tablet, 10 MG PO Q6 PRN for NAUSEA AND/OR VOMITING, #10 TAB Prov:ARNULFO SALAMANCA DO 09/19/16 Ranitidine Hcl* (Zantac*) 150 Mg Tablet, 150 MG PO BID PRN for EPIGASTRIC PAIN, #30 TAB Prov:ARNULFO SALAMANCA DO 09/19/16 Ondansetron (Zofran Odt) 4 Mg Tab.rapdis, 4 MG PO Q6, #10 Prov:ARNULFO SALAMANCA DO 09/19/16 Loperamide Hcl* (Imodium*) 2 Mg Capsule, 2 MG PO .AFTER EA LOOSE BM PRN for DIARRHEA, #10 TAB Prov:LAINA CARRANZA PA-C 09/15/16 Ciprofloxacin Hcl* (Ciprofloxacin Hcl*) 500 Mg Tablet, 500 MG PO BID for 3 Days, TAB Prov:ARNULFO SALAMANCA DO 09/13/16 Naproxen* (Naproxen*) 500 Mg Tablet, 500 MG PO BID PRN for PAIN, #20 TAB Prov:ARNULFO SALAMANCA DO 09/13/16 Ranitidine Hcl* (Zantac*) 150 Mg Tablet, 150 MG PO BID PRN for EPIGASTRIC PAIN, #30 TAB Prov:ARNULFO SALAMANCA DO 09/13/16 Reported Medications [None] No Conflict Check 10/25/12 Allergies Allergies: Coded Allergies: No Known Allergy (Unverified , 08/06/18) PMhx/Soc History of Surgery: Yes (TUBAL LIGATION; LUMPECTOMY) Anesthesia Reaction: No Hx Neurological Disorder: No Hx Respiratory Disorders: No Hx Cardiac Disorders: No Hx Psychiatric Problems: No Hx Miscellaneous Medical Probl: Yes (HYPOGLYCEMIA) Hx Alcohol Use: No Hx Substance Use: No Hx Tobacco Use: Yes (3 cigs/ day) FmHx Family History: No diabetes, No coronary disease, No other Physical Exam Vitals Vital Signs Date Temp Pulse Resp B/P (MAP) Pulse Ox O2 O2 Flow FiO2 Time Delivery Rate 08/11/18 98.5 87 18 125/81 99 10:34 (96) Physical Exam Const: No acute distress Head: Atraumatic Eyes: Normal Conjunctiva ENT: Normal External Ears, Nose and Mouth. Neck: Full range of motion. No meningismus. Resp: Clear to auscultation bilaterally Cardio: Regular rate and rhythm, no murmurs Abd: Soft, non tender, non distended. Normal bowel sounds Skin: No petechiae or rashes Back: No midline or flank tenderness Ext: No cyanosis, or edema. Healing laceration on the left thenar eminence without erythema, bleeding or discharge. Neur: Awake and alert Psych: Normal Mood and Affect Procedures/MDM Sutures removed left hand. Patient presents with satisfactory healing wound on the left hand without signs of infection, ischemia, deficits, additional complications. She will discharged home with return precautions and aftercare instructions. Departure Diagnosis: Primary Impression: Encounter for removal of sutures Condition: Stable Patient Instructions: Suture Removal, No Complication ADELSO DENISE MD Aug 11, 2018 11:11
== END 2018-08-11 11:35 | disposition home or self-care (01) ==
LOC: FTE 10:32
DX: Z48.02 Encounter for removal of sutures (principal); F17.210 Nicotine dependence, cigarettes, uncomplicated
CPT/HCPCS: 99281